=== PATIENT | female | born 1945 | race Caucasian/White ===

== ENCOUNTER 2021-10-20 10:59 | Inpatient (IN) | payer MEDICARE ==
[~2021-10-20] VITALS: Ht 157.5 cm; Wt 65.9 kg
[2021-10-20 11:33] LABS: BASOPHILS % (AUTO) 0.3 % (0-1); EOSINOPHILS % (AUTO) 0.1 % (0-6); HEMATOCRIT 36.7 % (35.0-45.0); HEMOGLOBIN 12.9 g/dl (12.0-16.0); LYMPHOCYTES # (AUTO) 0.6 X10'3 (1.1-4.8); MEAN CORPUSCULAR HEMOGLOBIN 32.3 PG (27.0-31.0); MEAN CORPUSCULAR VOLUME 92.3 FL (78-98); MEAN PLATELET VOLUME 7.4 FL (7.4-10.4); MONOCYTES # (AUTO) 0.4 X10'3 (0-0.9); MONOCYTES % (AUTO) 3.6 % (2-12); NEUTROPHILS # (AUTO) 9.6 X10'3 (1.8-7.7); PLATELET COUNT 220 X10'3 (140-440); RED BLOOD COUNT 3.98 X10'6 (4.20-5.60); RED CELL DISTRIBUTION WIDTH 14.3 % (11.5-14.5); WHITE BLOOD COUNT 10.7 X10'3 (4.5-11.0)
[2021-10-20 11:46] LABS: ALANINE AMINOTRANSFERASE 137 U/L (12-78); ALBUMIN 2.4 G/DL (3.4-5.0); ALBUMIN/GLOBULIN RATIO 0.6 (1.1-1.5); ALKALINE PHOSPHATASE 94 IU/L (46-116); ANION GAP 14 (8-16); ASPARTATE AMINO TRANSFERASE 124 U/L (10-37); BILIRUBIN,TOTAL 0.9 MG/DL (0.1-1.0); BLOOD UREA NITROGEN 16 MG/DL (7-18); BUN/CREATININE RATIO 13.2 (6.6-38.0); CALCIUM 8.2 MG/DL (8.5-10.1); CHLORIDE 93 MMOL/L (99-107); CREATININE 1.21 MG/DL (0.40-0.90); GLUCOSE 143 MG/DL (70-104); SODIUM 126 MMOL/L (135-145); TOTAL CARBON DIOXIDE 19.3 MMOL/L (24-32); TOTAL PROTEIN 6.6 G/DL (6.4-8.2); eGFR 43 ML/MIN
[2021-10-20] MEDS ORDERED: normal saline 1000ml 1,000 ML IV ONE ×2 (12:10→15:25)
--- NOTE | 2021-10-20 12:30 | NUR ---
Home meds: Atenolol 5 mg BID; atorvastatin 5 mg daily; trazodone nightly, unsure of dose; aspirin 81 mg daily
[2021-10-20] MEDS ORDERED: diltiazem 5mg/ml 5ml inj. IV ONE ×2 (12:35→12:55)
[2021-10-20] MEDS ORDERED: diltiazem-D5W 125mg/125ml 125 ML IV SCH (12:55)
[2021-10-20 12:58] LABS: MAGNESIUM 1.7 MG/DL (1.5-2.4)
[2021-10-20] MEDS ORDERED: acetaminophen 325mg tablet PO PRN ×2 (13:40)
[2021-10-20] MEDS ORDERED: heparin 25,000 UNIT/250ml bag 250 ML IV SCH (13:40)
[2021-10-20] MEDS ORDERED: mag hydrox/Alum hydrox/simeth 30ml oral suspension PO PRN (13:40)
[2021-10-20] MEDS ORDERED: heparin 10,000 units/1 ML INJ IV ONE (13:40)
[2021-10-20] MEDS ORDERED: morphine 2 MG/ML inj. syringe IV PRN ×2 (13:40)
[2021-10-20] MEDS ORDERED: HYDROcodone/acetaminophen 5mg/325mg tablet PO PRN (13:40)
[2021-10-20] MEDS ORDERED: heparin 10,000 units/1 ML INJ IV PRN (13:40)
[2021-10-20] MEDS ORDERED: ondansetron/PF 4mg/2ml inj IV PRN (13:40)
[2021-10-20] MEDS ORDERED: magnesium hydroxide 30ml (MOM) UD suspension PO PRN (13:40)
--- NOTE | 2021-10-20 13:40 | NUR ---
PTS DAUGHTER BRADLY CONTACT NUMBER [phone]
--- NOTE | 2021-10-20 13:44 | NUR ---
Pt denies pain. Zulmater left, call light in reach.
[2021-10-20] MEDS ORDERED: ASPI-611 PO (13:52)
[2021-10-20] MEDS ORDERED: TRAZ-251 PO (13:52)
[2021-10-20] MEDS ORDERED: ATEN-236 PO (13:52)
[2021-10-20] MEDS ORDERED: iohexol 350 MG/ML 50ML vial IV ONE (13:52)
[2021-10-20] MEDS ORDERED: ATOR20TA66 PO (13:52)
[2021-10-20 14:40] LABS: BASOPHILS % (AUTO) 0.1 % (0-1); EOSINOPHILS % (AUTO) 0 % (0-6); HEMATOCRIT 36.4 % (35.0-45.0); LYMPHOCYTES # (AUTO) 0.6 X10'3 (1.1-4.8); LYMPHOCYTES % (AUTO) 4.7 % (21-51); MEAN CORPUSCULAR HEMOGLOBIN 31.7 PG (27.0-31.0); MEAN PLATELET VOLUME 7.3 FL (7.4-10.4); MONOCYTES # (AUTO) 0.3 X10'3 (0-0.9); MONOCYTES % (AUTO) 2.2 % (2-12); NEUTROPHILS # (AUTO) 12.7 X10'3 (1.8-7.7); PLATELET COUNT 207 X10'3 (140-440); RED BLOOD COUNT 3.78 X10'6 (4.20-5.60); RED CELL DISTRIBUTION WIDTH 14.5 % (11.5-14.5); WHITE BLOOD COUNT 13.7 X10'3 (4.5-11.0)
[2021-10-20 14:52] LABS: APTT 30 SECONDS (22-32)
[2021-10-20 15:13] LABS: MEAN CORPUSCULAR VOLUME 93.8 FL (78-98)
[2021-10-20] MEDS ORDERED: cefTRIAXone 1g/NS 100ml IVPB 100 ML IV ONE (15:25)
[2021-10-20 15:33] LABS: CLARITY,URINE CLOUDY (Clear); GLUCOSE, URINE NEGATIVE (Neg); KETONES,URINE NEGATIVE (Neg); LEUKOCYTE ESTERASE ,URINE LARGE (Neg); NITRITES, URINE NEGATIVE (Neg); OCCULT BLOOD,URINE SMALL (Neg); PROTEIN,URINE NEGATIVE (Neg); UROBILINOGEN,URINE 0.2 E.U/dL (0.2-1.0)
[2021-10-20 15:39] LABS: UA COLLECTION TYPE NON-SPECIFIED
[2021-10-20 15:40] LABS: COLOR,URINE STRAW (Yellow)
[2021-10-20 15:42] LABS: SQUAMOUS EPITHELIAL CELL,UR FEW /LPF (FEW)
[2021-10-20 15:44] LABS: BACTERIA,URINE 3+ /HPF (Neg); WBC,URINE TNTC /HPF (0-4)
[2021-10-20 15:45] LABS: RBC,URINE 20-50 /HPF (0-2); TRANSITIONAL EPI CELLS,URINE FEW /HPF
[2021-10-20] MEDS ORDERED: amiodarone 150mg/dext, iso-os 100 ML IV ONE (16:25)
[2021-10-20] MEDS ORDERED: tirofiban 12.5mg in NS 250mL 250 ML IV SCH (16:25)
[2021-10-20] MEDS: amiodarone/D5 360MG/200ML BAG 200 ML IV SCH ×2 (16:57→22:49)
[2021-10-20] MEDS: tirofiban 5mg in NS 100mL 100 ML IV SCH (16:59)
--- NOTE | 2021-10-20 17:00 | NUR ---
Dr Alcantar and GENERAL ASSEMBLER INSTALLER Saumya at bedside to assess patient at this time. Dr Alcantar aware patient RR has been 25-35, no new orders at this time.
--- NOTE | 2021-10-20 18:30 | NUR ---
Pt pink, alert, no acute/resp distress. PIV site c/d/i s complication or adverse reaction. Bed in lowest position, wheels locked, rail 2/2 up. Call figueroa in reach.
[2021-10-20] MEDS: docusate sod 100mg capsule PO SCH (20:00)
[2021-10-20] MEDS: metoprolol tartrate 50mg tablet PO SCH (20:00)
[2021-10-20] MEDS: traZODone 50mg tablet PO SCH (21:00)
--- NOTE | 2021-10-21 02:30 | NUR ---
Pt pink, alert, no acute/resp distress. PIV site c/d/i s complication or adverse reaction. Bed in lowest position, wheels locked, rail 2/2 up. Call figueroa in reach. Pt cleaned up by Bell ALEMAN after small BM. Pt rigoberto. well remained pink. PIV site c/d/i s complication or adverse reaction.
[2021-10-21 02:47] LABS: BASOPHILS % (AUTO) 0.2 % (0-1); EOSINOPHILS % (AUTO) 0 % (0-6); HEMATOCRIT 33.1 % (35.0-45.0); HEMOGLOBIN 11.1 g/dl (12.0-16.0); LYMPHOCYTES # (AUTO) 1.3 X10'3 (1.1-4.8); LYMPHOCYTES % (AUTO) 8.4 % (21-51); MEAN CORPUSCULAR HEMOGLOBIN 31.8 PG (27.0-31.0); MEAN CORPUSCULAR HGB CONC 33.6 g/dL (33.0-36.5); MEAN CORPUSCULAR VOLUME 94.4 FL (78-98); MEAN PLATELET VOLUME 7.5 FL (7.4-10.4); MONOCYTES # (AUTO) 1.5 X10'3 (0-0.9); MONOCYTES % (AUTO) 9.2 % (2-12); NEUTROPHILS # (AUTO) 13.1 X10'3 (1.8-7.7); NEUTROPHILS % (AUTO) 82.2 % (42-75); PLATELET COUNT 178 X10'3 (140-440); RED BLOOD COUNT 3.51 X10'6 (4.20-5.60); RED CELL DISTRIBUTION WIDTH 14.3 % (11.5-14.5); WHITE BLOOD COUNT 15.9 X10'3 (4.5-11.0)
[2021-10-21 02:53] LABS: ALBUMIN 1.9 G/DL (3.4-5.0); ANION GAP 13 (8-16); BLOOD UREA NITROGEN 11 MG/DL (7-18); BUN/CREATININE RATIO 10.6 (6.6-38.0); CHLORIDE 100 MMOL/L (99-107); CHOL/HDL RATIO 2.8 (0.00-4.99); CHOLESTEROL 88 MG/DL (0-200); CREATININE 1.04 MG/DL (0.40-0.90); GLUCOSE 148 MG/DL (70-104); HDL CHOLESTEROL 31 MG/DL (35-60); LDL CHOLESTEROL 31 MG/DL (50-100); POTASSIUM 3.2 MMOL/L (3.5-5.1); SODIUM 132 MMOL/L (135-145); TOTAL CARBON DIOXIDE 19.1 MMOL/L (24-32); TRIGLYCERIDES 71 MG/DL (20-135); eGFR 51 ML/MIN
--- NOTE | 2021-10-21 03:09 | NUR ---
Paged Dr. Haines, in house doc, advised lab is reporting gram negative rods in blood culture. Pt pink, alert, no acute/resp distress. PIV site c/d/i s complication or adverse reaction. Bed in lowest position, wheels locked, rail 2/2 up. Call figueroa in reach. Pt cleaned up by Bell ALEMAN after small BM. Pt rigoberto. well remained pink. PIV site c/d/i s complication or adverse reaction.
--- NOTE | 2021-10-21 04:30 | NUR ---
Pt back from CT, pink, no acute/resp distress. Pt pink, alert, no acute/resp distress. Bed in lowest position, wheels locked, rail 2/2 up. Call figueroa in reach. PIV c/d/i s complication or adverse reaction. Pt changed bed from ER bed to Hospital bed.
[2021-10-21] MEDS: amiodarone/D5 360MG/200ML BAG 200 ML IV SCH ×2 (04:55→06:24)
--- NOTE | 2021-10-21 05:32 | NUR ---
Pt back from CT, pink, no acute/resp distress. Pt pink, alert, no acute/resp distress. Bed in lowest position, wheels locked, rail 2/2 up. Call figueroa in reach.
--- NOTE | 2021-10-21 06:10 | NUR ---
Handoff report to dayshift RN Pt in floor bed in room [id number]. Pt bed in lowest position, wheels locked, rails up, call figueroa in reach. PIV site c/d/i s complication or adverse reaction.
[2021-10-21] MEDS: tirofiban 5mg in NS 100mL 100 ML IV SCH (06:25)
--- NOTE | 2021-10-21 06:30 | NUR ---
report received from dorita amaral
[2021-10-21] MEDS: docusate sod 100mg capsule PO SCH ×2 (08:00→20:49)
[2021-10-21] MEDS ORDERED: aspirin 81mg, enteric-coated 1 TAB TABLET.DR PO SCH (08:00)
[2021-10-21] MEDS: aspirin 81mg, enteric-coated 1 TAB TABLET.DR PO SCH (08:47)
[2021-10-21] MEDS: cefTRIAXone 1g/NS 100ml IVPB 100 ML IV SCH (08:47)
[2021-10-21] MEDS: metoprolol tartrate 50mg tablet PO SCH ×2 (08:48→20:49)
[2021-10-21] MEDS: atorvastatin 20mg tablet PO SCH (08:48)
[2021-10-21] MEDS: amiodarone 200mg tablet PO SCH (10:05)
--- NOTE | 2021-10-21 10:12 | NUR ---
PT SWABBED WITH COVID PCR BY ELGIN YEPEZ, INFECTION CONTROL Addendum: 10/21/21 at 1036 by JAMSHID PCR COVID CAME BACK NEGATIVE PER ELGIN YEPEZ. MONOTYPE MECHANIC AND PT RN NOTIFIEID
[2021-10-21] MEDS: clopidogrel 75mg tablet PO SCH (11:10)
[2021-10-21 12:30] VITALS: BP 115/53
[2021-10-21 15:00] VITALS: BP 113/57
[2021-10-21 18:00] VITALS: BP 113/56
[2021-10-21] MEDS: proCHLORperazine 10mg tablet PO PRN (19:50)
[2021-10-21] MEDS: diltiazem 30mg tablet PO SCH (20:49)
[2021-10-21] MEDS: traZODone 50mg tablet PO SCH (20:49)
[2021-10-21 22:00] VITALS: BP 100/44
[2021-10-21] MEDS ORDERED: temazepam 15mg capsule PO PRN (23:10)
[2021-10-21] MEDS: temazepam 15mg capsule PO PRN (23:55)
[2021-10-22 02:00] VITALS: BP 104/71
[2021-10-22] MEDS: diltiazem 30mg tablet PO SCH ×2 (02:55→07:41)
[2021-10-22 06:00] VITALS: BP 110/60
[2021-10-22 06:59] LABS: BASOPHILS % (AUTO) 0.3 % (0-1); EOSINOPHILS % (AUTO) 0.1 % (0-6); HEMOGLOBIN 12.7 g/dl (12.0-16.0); LYMPHOCYTES # (AUTO) 0.6 X10'3 (1.1-4.8); LYMPHOCYTES % (AUTO) 5.1 % (21-51); MEAN CORPUSCULAR HGB CONC 34.3 g/dL (33.0-36.5); MEAN CORPUSCULAR VOLUME 93.3 FL (78-98); MEAN PLATELET VOLUME 7.9 FL (7.4-10.4); MONOCYTES # (AUTO) 0.9 X10'3 (0-0.9); MONOCYTES % (AUTO) 7.1 % (2-12); NEUTROPHILS # (AUTO) 10.8 X10'3 (1.8-7.7); NEUTROPHILS % (AUTO) 87.4 % (42-75); PLATELET COUNT 215 X10'3 (140-440); RED BLOOD COUNT 3.97 X10'6 (4.20-5.60); RED CELL DISTRIBUTION WIDTH 14.8 % (11.5-14.5); WHITE BLOOD COUNT 12.3 X10'3 (4.5-11.0)
[2021-10-22 07:15] LABS: ALBUMIN 2.2 G/DL (3.4-5.0); ANION GAP 12 (8-16); BLOOD UREA NITROGEN 11 MG/DL (7-18); BUN/CREATININE RATIO 9.6 (6.6-38.0); CALCIUM 7.5 MG/DL (8.5-10.1); CHLORIDE 99 MMOL/L (99-107); CREATININE 1.15 MG/DL (0.40-0.90); GLUCOSE 111 MG/DL (70-104); POTASSIUM 3.3 MMOL/L (3.5-5.1); SODIUM 133 MMOL/L (135-145); TOTAL CARBON DIOXIDE 22.5 MMOL/L (24-32); eGFR 46 ML/MIN
[2021-10-22] MEDS: docusate sod 100mg capsule PO SCH ×2 (07:17→21:12)
[2021-10-22] MEDS: metoprolol tartrate 50mg tablet PO SCH ×2 (07:43→21:12)
[2021-10-22] MEDS: clopidogrel 75mg tablet PO SCH (07:43)
[2021-10-22] MEDS: amiodarone 200mg tablet PO SCH (07:43)
[2021-10-22] MEDS: atorvastatin 20mg tablet PO SCH (07:43)
[2021-10-22] MEDS: aspirin 81mg, enteric-coated 1 TAB TABLET.DR PO SCH (07:43)
[2021-10-22] MEDS: cefTRIAXone 1g/NS 100ml IVPB 100 ML IV SCH (07:44)
--- NOTE | 2021-10-22 10:20 | NUR ---
Verbal order Verbal order from Dr. Poe to change PO metoprolol from 25mg BID to 50mg BID and discontinue to oral cardizem. [facility]
[2021-10-22 11:00] VITALS: BP 94/55
--- NOTE | 2021-10-22 11:28 | NUR ---
Initial: Pt admit for sepsis secondary to UTI. Per LIGHT RAIL OPERATOR note pt with LVEF 75%. Pt on a heart healthy diet, documented with 0-25% PO intake first two meals which improved to 75-100% PO intake at breakfast this morning. Recommend liberalizing to regular diet in view of geriatric age and lipid panel WNL with the exception of low LDL and HDL. LBM 5/5. No nutrition intervention implemented at this time. Will continue to follow and make recommendations as appropriate pending further trends in PO intake. Recommendations: 1) Liberalize to regular diet in view of geriatric age and lipid panel WNL with the exception of low LDL and HLD; LVEF 75% per LIGHT RAIL OPERATOR note 2) Monitor need for ONS/additional protein 3) Bowel care per rx 4) Scaled weight this admit; subsequent weekly scaled weights Addendum: 10/22/21 at [address] Amended: Links added.
--- NOTE | 2021-10-22 12:10 | NUR ---
Page to Paged Dr. Poe in regards to K of 3.3 and no potassium protocol in place; Will continue to monitor. [facility]
[2021-10-22] MEDS ORDERED: ondansetron 4mg rapidly disintigrating tab PO PRN (13:15)
[2021-10-22] MEDS ORDERED: potassium Cl 40MEQ/1/2NS 520ml 520 ML IV PRN (14:15)
[2021-10-22] MEDS ORDERED: POTASSIUM BICARB 20meq eff tab 20 MEQ TABLET.EFF PO PRN (14:15)
[2021-10-22] MEDS ORDERED: magnesium 2GM in 50ml NS 50 ML IV PRN (14:15)
[2021-10-22] MEDS ORDERED: magnesium 4gm in 100ml NS 100 ML IV PRN (14:15)
[2021-10-22] MEDS: K and/or MAG REPLACEMENT MC SCH ×2 (14:19→20:00)
[2021-10-22 15:00] VITALS: BP 101/56
--- NOTE | 2021-10-22 15:02 | NUR ---
SUZE PAGER ID: [phone] MESSAGE: Dr. Latham pt in room 3596K Bradley Bello is getting frustrated and wants to leave [facility] I educated him on risks of leaving with a critical hematocrit and he stated he's aware of the risks. Thanks, Mary [facility]
[2021-10-22] MEDS: POTASSIUM BICARB 20meq eff tab 20 MEQ TABLET.EFF PO PRN ×2 (15:56→21:05)
[2021-10-22 16:25] LABS: MAGNESIUM 2.3 MG/DL (1.5-2.4); POTASSIUM 3.3 MMOL/L (3.5-5.1)
[2021-10-22] MEDS: proCHLORperazine 10mg tablet PO PRN (17:21)
[2021-10-22 18:00] VITALS: BP 117/51
--- NOTE | 2021-10-22 18:27 | NUR ---
Problems reprioritized. Patient report given, questions answered & plan of care reviewed with Marisela NAGY.
[2021-10-22] MEDS: traZODone 50mg tablet PO SCH (21:00)
[2021-10-22] MEDS: temazepam 15mg capsule PO PRN (21:05)
[2021-10-22] MEDS: apixaban 5mg tablet PO SCH (21:06)
[2021-10-22 22:00] VITALS: BP 107/84
[2021-10-23 02:00] VITALS: BP 116/58
[2021-10-23] MEDS: POTASSIUM BICARB 20meq eff tab 20 MEQ TABLET.EFF PO PRN (02:00)
[2021-10-23 06:00] VITALS: BP 102/74
[2021-10-23 06:48] LABS: BASOPHILS % (AUTO) 0.2 % (0-1); EOSINOPHILS % (AUTO) 0.5 % (0-6); HEMOGLOBIN 11.4 g/dl (12.0-16.0); LYMPHOCYTES % (AUTO) 11.4 % (21-51); MEAN CORPUSCULAR HEMOGLOBIN 31.8 PG (27.0-31.0); MEAN CORPUSCULAR HGB CONC 34.5 g/dL (33.0-36.5); MEAN CORPUSCULAR VOLUME 92.1 FL (78-98); MEAN PLATELET VOLUME 7.3 FL (7.4-10.4); MONOCYTES # (AUTO) 0.9 X10'3 (0-0.9); MONOCYTES % (AUTO) 11.2 % (2-12); NEUTROPHILS # (AUTO) 6.5 X10'3 (1.8-7.7); NEUTROPHILS % (AUTO) 76.7 % (42-75); PLATELET COUNT 237 X10'3 (140-440); RED BLOOD COUNT 3.58 X10'6 (4.20-5.60); RED CELL DISTRIBUTION WIDTH 14.6 % (11.5-14.5); WHITE BLOOD COUNT 8.5 X10'3 (4.5-11.0)
[2021-10-23 06:55] LABS: ALBUMIN 1.8 G/DL (3.4-5.0); ANION GAP 6 (8-16); BLOOD UREA NITROGEN 10 MG/DL (7-18); CALCIUM 7.3 MG/DL (8.5-10.1); CHLORIDE 99 MMOL/L (99-107); CREATININE 1.11 MG/DL (0.40-0.90); GLUCOSE 102 MG/DL (70-104); MAGNESIUM 2.5 MG/DL (1.5-2.4); POTASSIUM 4.1 MMOL/L (3.5-5.1); SODIUM 131 MMOL/L (135-145); eGFR 48 ML/MIN
[2021-10-23] MEDS: K and/or MAG REPLACEMENT MC SCH (08:00)
[2021-10-23] MEDS ORDERED: normal saline 1000ml 1,000 ML IV SCH (08:35)
[2021-10-23] MEDS: atorvastatin 20mg tablet PO SCH (08:39)
[2021-10-23] MEDS: amiodarone 200mg tablet PO SCH (08:39)
[2021-10-23] MEDS: cefTRIAXone 1g/NS 100ml IVPB 100 ML IV SCH (08:39)
[2021-10-23] MEDS: apixaban 5mg tablet PO SCH (08:39)
[2021-10-23] MEDS: docusate sod 100mg capsule PO SCH (08:39)
[2021-10-23] MEDS: metoprolol tartrate 50mg tablet PO SCH (08:39)
[2021-10-23 11:00] VITALS: BP 117/59
[2021-10-23] MEDS ORDERED: METO50TA16 PO (13:03)
[2021-10-23] MEDS ORDERED: APIX5TAB3 PO (13:03)
[2021-10-23] MEDS ORDERED: LEVO500T90 PO (13:03)
[2021-10-23] MEDS ORDERED: AMIO200T67 PO (14:00)
--- NOTE | 2021-10-23 15:15 | NUR ---
Discharge instructions discussed with patient. Answered all questions. pt states she understands. Pt's granddaughter is picking her up. Pt will leave unit via wheelchair.
== END 2021-10-23 15:56 | disposition home or self-care (01) | DRG 871 ==
LOC: ER 11:00 → ED HOLD 13:51 → PCU 3S 10-21 12:10
PROVIDERS: ADMIT Internal Medicine; ATTEND Internal Medicine
PROC: B32T1ZZ Computerized Tomography (CT Scan) of Left Pulmonary Artery using Low Osmolar Contrast (ICD-10-PCS; principal; 2021-10-20)
PROC: B3201ZZ Computerized Tomography (CT Scan) of Thoracic Aorta using Low Osmolar Contrast (ICD-10-PCS; 2021-10-20)
PROC: B32S1ZZ Computerized Tomography (CT Scan) of Right Pulmonary Artery using Low Osmolar Contrast (ICD-10-PCS; 2021-10-20)
DX: A41.51 Sepsis due to Escherichia coli [E. coli] (principal); I21.4 Non-ST elevation (NSTEMI) myocardial infarction; I50.21 Acute systolic (congestive) heart failure; E87.1 Hypo-osmolality and hyponatremia; N17.9 Acute kidney failure, unspecified; N39.0 Urinary tract infection, site not specified; R65.20 Severe sepsis without septic shock; Z20.822 Contact with and (suspected) exposure to COVID-19; E78.00 Pure hypercholesterolemia, unspecified; E78.5 Hyperlipidemia, unspecified; G89.29 Other chronic pain; I08.3 Combined rheumatic disorders of mitral, aortic and tricuspid valves; I11.0 Hypertensive heart disease with heart failure; I44.7 Left bundle-branch block, unspecified; I48.0 Paroxysmal atrial fibrillation; G47.00 Insomnia, unspecified; K44.9 Diaphragmatic hernia without obstruction or gangrene; M19.90 Unspecified osteoarthritis, unspecified site; E87.6 Hypokalemia; M54.9 Dorsalgia, unspecified; R74.01 Elevation of levels of liver transaminase levels; M81.0 Age-related osteoporosis without current pathological fracture; Z79.01 Long term (current) use of anticoagulants; Z79.82 Long term (current) use of aspirin; Z79.899 Other long term (current) drug therapy; Z87.891 Personal history of nicotine dependence; Z90.711 Acquired absence of uterus with remaining cervical stump
CPT/HCPCS: 36415; 71045; 71275; 80048; 80053; 80061; 81001; 83605; 83735; 83880; 84132; 84145; 84484; 85025; 85379; 85610; 85730; 87040; 87077; 87081; 87186; 87635; 93005; 93306; 96361; 96365; 96375; 96376; 99285; G0378; J0282; J0696; J1644; J2405; J3246; J3490; J7030; Q0164; Q9967